=== PATIENT | female | born 1970 | race Caucasian/White ===

== ENCOUNTER 2020-06-23 09:49 | Outpatient (REF) | payer OTHER, MEDICAID, SELFPAY ==
[2020-06-23 11:36] LABS: Free T4 (Free Thyroxine) 0.99 ng/dL (0.71-1.85); Thyroid Stimulating Hormone 5.97 uIU/mL (0.32-4.0)
== END 2020-06-23 09:50 | disposition home or self-care (01) ==
LOC: HO.LAB 09:49
PROVIDERS: PCP Internal Medicine; Visit Provider Internal Medicine
DX: E03.9 Hypothyroidism, unspecified (principal)
CPT/HCPCS: 84439; 84443

== ENCOUNTER 2020-08-17 09:05 | Outpatient (REF) | payer OTHER, MEDICAID, SELFPAY ==
[2020-08-17 11:27] LABS: MANUAL DIFF FLAG NO
[2020-08-17 11:48] LABS: Basophils Percent Auto 0.5 % (0-2); Eosinophils Absolute Auto 0.1 X10*3/uL (0.0-0.4); Eosinophils Percent Auto 1.8 % (0-4); Hematocrit 37.7 % (37-47); Hemoglobin 11.7 g/dl (12.0-16.0); Imm Gran Abs Auto 0.01 X10*3/uL (0.00-0.03); Imm Gran Pct Auto 0.3 % (0.0-0.4); Lymphocytes Absolute Auto 1.1 X10*3/uL (1.2-4.9); Lymphocytes Percent Auto 28.6 % (20-40); Mean Corpuscular Hemoglobin 26.6 pg (27.0-33.0); Mean Corpuscular Volume 85.7 fL (80-98); Mean Platelet Volume 12.9 fL (9.4-12.3); Monocytes Absolute Auto 0.4 X10*3/uL (0.1-1.2); Monocytes Percent Auto 10.2 % (2-11); Neutrophils Absolute Auto 2.3 X10*3/uL (2.0-8.3); Neutrophils Percent Auto 58.6 % (45-73); Platelet Count 186 X10*3/uL (160-400); Red Cell Distribution Width 13.3 % (11.0-16.0); White Blood Count 3.9 X10*3/uL (4.8-10.8)
[2020-08-17 11:56] LABS: Cholesterol 207 mg/dL; Glucose Fasting 94 mg/dL (60-99); HDL Cholesterol 80 mg/dL; LDL Cholesterol Calculated 114 mg/dl; Triglycerides 68 mg/dL
[2020-08-17 12:22] LABS: Free T4 (Free Thyroxine) 1.14 ng/dL (0.71-1.85)
[2020-08-20 18:23] LABS: Thyroid Peroxidase Antibodies <1 IU/mL (<9)
== END 2020-08-17 09:06 | disposition home or self-care (01) ==
LOC: HO.HMGCLDS 09:05
PROVIDERS: PCP Internal Medicine; Visit Provider Internal Medicine
DX: E03.9 Hypothyroidism, unspecified (principal); D64.9 Anemia, unspecified
CPT/HCPCS: 36415; 80061; 82947; 84439; 84443; 85025; 86376

== ENCOUNTER 2020-11-17 09:28 | Outpatient (REF) | payer OTHER, MEDICAID, SELFPAY ==
[2020-11-17 10:49] LABS: Basophils Percent Auto 1.1 % (0-2); Eosinophils Absolute Auto 0.1 X10*3/uL (0.0-0.4); Eosinophils Percent Auto 2.6 % (0-4); Hematocrit 37.5 % (37-47); Hemoglobin 11.5 g/dl (12.0-16.0); Imm Gran Abs Auto 0.01 X10*3/uL (0.00-0.03); Imm Gran Pct Auto 0.4 % (0.0-0.4); Lymphocytes Percent Auto 36.8 % (20-40); MANUAL DIFF FLAG SCAN; Mean Corpuscular HGB Conc 30.7 g/dl (31.0-35.0); Mean Corpuscular Hemoglobin 26.4 pg (27.0-33.0); Monocytes Absolute Auto 0.4 X10*3/uL (0.1-1.2); Monocytes Percent Auto 14.9 % (2-11); Neutrophils Absolute Auto 1.2 X10*3/uL (2.0-8.3); Neutrophils Percent Auto 44.2 % (45-73); PLT CLUMP 1; Red Blood Count 4.36 X10*6/uL (4.20-5.50); Red Cell Distribution Width 13.7 % (11.0-16.0); SCAN SMEAR FLAG 1
[2020-11-17 11:14] LABS: White Blood Count 2.7 X10*3/uL (4.8-10.8)
[2020-11-17 11:15] LABS: Platelet Count 134 X10*3/uL (160-400); SLIDE REVIEW VERIFIED
[2020-11-17 11:49] LABS: Alanine Aminotransferase 15 U/L (0-31); Albumin Level 3.9 g/dL (3.5-5.0); Alkaline Phosphatase 72 U/L (39-117); Anion Gap 12 (12-20); Aspartate Amino Transferase 15 U/L (5-31); Bilirubin Total 0.4 mg/dL (0.0-1.0); Blood Urea Nitrogen 11 mg/dL (9-16); Calcium 9.4 mg/dL (8.4-10.2); Carbon Dioxide 29 mmol/L (22-29); Chloride 107 mmol/L (96-108); Cholesterol 191 mg/dL; Estimated Glomerular Filt Rate > 60; Glucose Fasting 100 mg/dL (60-99); HDL Cholesterol 73 mg/dL; LDL Cholesterol Calculated 105 mg/dl; Potassium 4.6 mmol/L (3.3-5.1); Sodium 143 mmol/L (135-145); Total Protein 6.3 g/dL (6.5-8.0); Triglycerides 69 mg/dL
[2020-11-17 12:13] LABS: Thyroid Stimulating Hormone 4.56 uIU/mL (0.32-4.0); Vitamin D 25-OH Total 38.4 ng/mL (>30)
== END 2020-11-17 09:29 | disposition home or self-care (01) ==
LOC: HO.LAB 09:28
PROVIDERS: Visit Provider Internal Medicine
DX: C50.919 Malignant neoplasm of unspecified site of unspecified female breast (principal); D64.9 Anemia, unspecified; E03.9 Hypothyroidism, unspecified; Z78.0 Asymptomatic menopausal state
CPT/HCPCS: 36415; 80053; 80061; 82306; 84439; 84443; 85025

== ENCOUNTER 2020-12-05 12:02 | Outpatient (REF) | payer OTHER, MEDICAID, SELFPAY ==
--- NOTE | ~2020-12-05 | XR_ITS ---
EXAMINATION: XR KNEE, RIGHT CLINICAL INFORMATION: M25.561 - Pain in right knee COMPARISON: None TECHNIQUE: Four views of the right knee. FINDINGS: There is no fracture, dislocation, or definite suprapatellar effusion. Hoffa's fat pad appears normal. There is no joint narrowing or erosive change or chondrocalcinosis. Normal bony mineralization. No periostitis or destructive process. There is mild spurring at quadriceps insertion patella. XR/XR knee RT 4V IMPRESSION: 1. Spurring at quadriceps insertion patella. 2. No joint narrowing or erosive changes or definite effusion.
== END 2020-12-05 12:03 | disposition home or self-care (01) ==
LOC: HO.HMGCX 12:02
PROVIDERS: Visit Provider Internal Medicine
DX: M25.561 Pain in right knee (principal)
CPT/HCPCS: 73564

== ENCOUNTER 2022-05-23 09:18 | Outpatient (REF) | payer OTHER, MEDICAID, SELFPAY ==
[2022-05-23 11:33] LABS: Basophils Percent Auto 0.8 % (0-2); Eosinophils Absolute Auto 0.1 X10*3/uL (0.0-0.4); Eosinophils Percent Auto 2.4 % (0-4); Hematocrit 37.2 % (37.0-47.0); Hemoglobin 11.7 g/dl (12.0-16.0); Imm Gran Abs Auto 0.01 X10*3/uL (0.00-0.03); Imm Gran Pct Auto 0.3 % (0.0-0.4); Lymphocytes Absolute Auto 1.1 X10*3/uL (1.2-4.9); Lymphocytes Percent Auto 28.5 % (20-40); MANUAL DIFF FLAG SCAN; Mean Corpuscular HGB Conc 31.5 g/dl (31.0-35.0); Mean Corpuscular Hemoglobin 26.4 pg (27.0-33.0); Monocytes Absolute Auto 0.4 X10*3/uL (0.1-1.2); Monocytes Percent Auto 9.4 % (2-11); Neutrophils Absolute Auto 2.2 x10*3/uL (2.0-8.3); Neutrophils Percent Auto 58.6 % (45-73); PLT CLUMP 1; Red Blood Count 4.43 X10*6/uL (4.20-5.50); Red Cell Distribution Width 13.6 % (11.0-16.0); SCAN SMEAR FLAG 1
[2022-05-23 11:54] LABS: Platelet Count 163 X10*3/uL (160-400); White Blood Count 3.7 X10*3/uL (4.8-10.8)
[2022-05-23 12:07] LABS: Alanine Aminotransferase 14 U/L (0-31); Anion Gap 15 (12-20); Aspartate Amino Transferase 18 U/L (5-31); Blood Urea Nitrogen 13 mg/dL (9-16); Calcium 9.4 mg/dL (8.4-10.2); Carbon Dioxide 26 mmol/L (22-29); Chloride 105 mmol/L (96-108); Cholesterol 219 mg/dL; Estimated Glomerular Filt Rate > 60; Glucose Fasting 95 mg/dL (60-99); HDL Cholesterol 75 mg/dL; LDL Cholesterol Calculated 124 mg/dl; Potassium 4.5 mmol/L (3.3-5.1); Sodium 141 mmol/L (135-145); Triglycerides 102 mg/dL
[2022-05-23 12:11] LABS: Free T4 (Free Thyroxine) 1.05 ng/dL (0.71-1.85); Thyroid Stimulating Hormone 5.32 uIU/mL (0.32-4.0); Vitamin D 25-OH Total 28.8 ng/mL (>30)
[2022-05-23 12:20] LABS: Folate 13.7 ng/mL (> or = 4.0); Vitamin B12 436 pg/mL (200-900)
[2022-05-23 13:32] LABS: SLIDE REVIEW VERIFIED
== END 2022-05-23 09:19 | disposition home or self-care (01) ==
LOC: HO.HMGCLDS 09:18
PROVIDERS: PCP Internal Medicine; Visit Provider Internal Medicine
DX: Z00.01 Encounter for general adult medical examination with abnormal findings (principal); D63.0 Anemia in neoplastic disease; E03.9 Hypothyroidism, unspecified
CPT/HCPCS: 36415; 80048; 80061; 82306; 82607; 82746; 84439; 84443; 84450; 84460; 85025

== ENCOUNTER 2022-06-05 10:27 | Outpatient (REF) | payer OTHER, MEDICAID, SELFPAY ==
--- NOTE | ~2022-06-05 | MM_ITS ---
EXAMINATION: BONE DENSITOMETRY CLINICAL INDICATION: Malignant neoplasm of unspecified site of left female.. COMPARISON: None (current study represents initial baseline exam). TECHNIQUE: Using a Zeomatrix DXA System (software version: 13.1) manufactured by [employer], dual-energy x-ray absorptiometry was performed of the lumbar spine and left hip. The images are of good technical quality. Summary results are attached. FINDINGS: AP SPINE L1-L4: BMD 0.897 g/cm2, Z-score -2.0, T-score -2.4, osteopenia. LEFT FEMUR, NECK: BMD 0.827 g/cm2, Z-score -0.7, T-score -1.5, osteopenia. LEFT FEMUR, TOTAL: BMD 0.883 g/cm2, Z-score -0.5, T-score -1.0, normal. IDENTIFIED RISK FACTORS: Height loss. Early menopause, secondary osteoporosis. HISTORY OF FRACTURE: None listed. MEDICATIONS: Calcium supplements or multivitamin, vitamin D, ERT/SERMS. MM/XR DEXA axial skeleton IMPRESSION: 1. DIAGNOSIS: Osteopenia based on the lowest T-score value of -2.4 in the lumbar spine applying World Health Organization criteria. 2. 10-YEAR FRACTURE RISK PREDICTION, FRAX: Major osteoporotic fracture (clinical spine, forearm, hip or shoulder) 2.6%. Hip fracture 0.2%. 3. Treatment Recommendations: NOF guidelines recommend consideration for treatment in postmenopausal women and men age 50 and older presenting with the following: -A hip or vertebral (clinical or morphometric) fracture. -T-score less than or equal to -2.5 at the femoral neck or spine after appropriate evaluation to exclude secondary causes. -Low bone mass at the hip or spine and a 10-year fracture probability by FRAX of greater than or equal to 3% for hip fracture or greater than or equal to 20% for major osteoporotic fracture based on the [place] adapted WHO algorithm. 4. Other Recommendations: All treatment decisions require clinical judgment and consideration of individual patient factors, including patient preferences, comorbidities, previous drug use, risk factors not captured in the FRAX model (e.g. frailty, falls, vitamin D deficiency, increased bone turnover, interval significant decline in bone density) and possible under or overestimation of fracture risk by FRAX. Additional medical evaluation for secondary cause of low bone mineral density may be appropriate. FUTURE SCAN RECOMMENDATION: People with diagnosed cases of osteoporosis or at high risk for fracture should have regular bone mineral density tests. For patients eligible for Medicare, routine testing is allowed once every 2 years. The testing frequency can be increased to one year for patients who have rapidly progressing disease, those who are receiving or discontinuing medical therapy to restore bone mass, or have additional risk factors.
== END 2022-06-05 10:28 | disposition home or self-care (01) ==
LOC: HO.MAMMO 10:27
PROVIDERS: PCP Internal Medicine; Visit Provider Internal Medicine
DX: Z13.820 Encounter for screening for osteoporosis (principal); C50.912 Malignant neoplasm of unspecified site of left female breast; E03.9 Hypothyroidism, unspecified; Z86.000 Personal history of in-situ neoplasm of breast; Z82.62 Family history of osteoporosis; Z78.0 Asymptomatic menopausal state
CPT/HCPCS: 77080

== ENCOUNTER 2022-12-11 09:32 | Outpatient (REF) | payer OTHER, MEDICAID, SELFPAY ==
[2022-12-11 11:21] LABS: MANUAL DIFF FLAG NO
[2022-12-11 11:33] LABS: Basophils Percent Auto 0.9 % (0-2); Eosinophils Absolute Auto 0.1 X10*3/uL (0.0-0.4); Eosinophils Percent Auto 1.7 % (0-4); Hemoglobin 11.9 g/dl (12.0-16.0); Imm Gran Abs Auto 0.01 X10*3/uL (0.00-0.03); Imm Gran Pct Auto 0.3 % (0.0-0.4); Lymphocytes Absolute Auto 1.1 X10*3/uL (1.2-4.9); Lymphocytes Percent Auto 30.5 % (20-40); Mean Corpuscular HGB Conc 31.3 g/dl (31.0-35.0); Mean Corpuscular Hemoglobin 26.7 pg (27.0-33.0); Mean Corpuscular Volume 85.4 fL (80.0-98.0); Mean Platelet Volume 12.8 fL (9.4-12.3); Monocytes Absolute Auto 0.4 X10*3/uL (0.1-1.2); Monocytes Percent Auto 10.1 % (2-11); Neutrophils Percent Auto 56.5 % (45-73); Platelet Count 170 X10*3/uL (160-400); Red Blood Count 4.45 X10*6/uL (4.20-5.50); Red Cell Distribution Width 13.5 % (11.0-16.0); White Blood Count 3.5 X10*3/uL (4.8-10.8)
[2022-12-11 12:01] LABS: Alanine Aminotransferase 16 U/L (0-31); Aspartate Amino Transferase 18 U/L (5-31); Cholesterol 190 mg/dL; HDL Cholesterol 71 mg/dL; Iron 114 mcg/dL (30-160); LDL Cholesterol Calculated 105 mg/dl; Percent Iron Saturation 31 % (15-50); Total Iron Binding Capacity 365 mcg/dL (228-428); Triglycerides 73 mg/dL; Unsaturated Iron Binding 251 ug/dL
[2022-12-11 12:21] LABS: Thyroid Stimulating Hormone 5.36 uIU/mL (0.32-4.0); Vitamin D 25-OH Total 104.2 ng/mL (>30)
== END 2022-12-11 09:33 | disposition home or self-care (01) ==
LOC: HO.HMGCLDS 09:32
PROVIDERS: PCP Internal Medicine; Visit Provider Internal Medicine
DX: E03.9 Hypothyroidism, unspecified (principal); E55.9 Vitamin D deficiency, unspecified; D64.9 Anemia, unspecified
CPT/HCPCS: 36415; 80061; 82306; 83540; 84443; 84450; 84460; 85025

== ENCOUNTER 2022-12-15 11:35 | Outpatient (AMB) | payer OTHER, MEDICAID, SELFPAY ==
--- NOTE | 2022-12-15 12:14 | A.OFFPC_ITS ---
Vital Signs 12/15/22 12:16 Height 5 ft 4 in Weight 144 lb BMI 24.7 BP 126/80 Blood Pressure Location Lt brachial Position Sitting Pulse 78 Pulse Source Pulse Oximeter Pulse Oximetry (%) 100 Oxygen Delivery Method Room Air Intake Visit Reasons: 6 Month Follow up Intake Note: Pt is here today for her 6 months f/u Allergies No Known Allergies Allergy (Verified 04/01/23 01:59) Medication List - Last Reconciled 04/01/23 by Renu Arzate MD diclofenac sodium 1% (Arthritis Pain (diclofenac)) 4 grams topical .bid PRN fluocinonide 0.05% 1 appl topical BID 10 days levothyroxine 37.5 mcg (1.5 x 25 mcg) PO DAILY nxxjkgtkmthy-bjri-zwrnz acid 18-400 mg-mcg (Centrum Complete) 1 tab PO DAILY tamoxifen 20 mg PO DAILY Tobacco use date assessed: 12/15/22 HPI 6 Month Follow up HPI Details 53-year-old lady with acquired hypothyroidism, history of infiltrating ductal carcinoma breast status post mastectomy currently on tamoxifen, here today for her follow-up. She has been feeling well, with recent fasting labs showing mild anemia with normal iron levels, normal fasting lipids, vitamin-D level, electrolytes and fasting glucose, but TSH mildly elevated [facility] Medical History (Updated 12/15/22 @ 12:45 by Renu Arzate MD) Acquired hypothyroidism Anemia Bilateral posterior neck pain Family history of osteoporosis in mother History of COVID-19 History of ductal carcinoma in situ (DCIS) of breast History of migraine History of Papanicolaou smear of cervix Infiltrating ductal carcinoma of breast Irritable bowel syndrome with constipation Knee pain, right Rash of toe Tubular adenoma of colon Varicose vein of leg Vitamin D deficiency Surgical History History of breast reconstruction History of section History of colonoscopy History of mastectomy Family History Father HTN (hypertension) Mother HTN (hypertension) Colon cancer, Onset Age: 58 Maternal Uncle Colon cancer, Onset Age: 58 Brother No problems noted. Brother No problems noted. Brother No problems noted. Sister No problems noted. Sister No problems noted. Son No problems noted. Son No problems noted. Social History Housing: House Alcohol intake: never Patient Tobacco Use Status: Never used Tobacco e-Cigarette/Vaping Use: Never Used service: No Current occupational status: unemployed Cognitive needs: No Hearing needs: No Vision needs: Yes Questionnaire PHQ-9 Over the last 2 weeks, how often have you been bothered by any of the following problems? 1. Little interest or pleasure in doing things: not at all 2. Feeling down, depressed, or hopeless: not at all 3. Trouble falling or staying asleep, or sleeping too much: several days 4. Feeling tired or having little energy: several days 5. Poor appetite or overeating: not at all 6. Feeling bad about yourself - or that you are a failure or have let yourself or your family down: not at all 7. Trouble concentrating on things, such as reading the newspaper or watching television: not at all 8. Moving or speaking so slowly that other people could have noticed. Or the opposite - being so fidgety or restless that you have been moving around a lot more than usual: not at all 9. Thoughts that you would be better off or of hurting yourself in some way: not at all Total score: 2 Depression Screening Interpretation: Negative [id number] - PHQ-9 Billing: Yes Source: Developed by Drs. Denys Cheema, Radha Ugarte, Ant Kat and colleagues, with an educational ty from [employer]. Thrive Questionnaire Date Thrive assessed: 12/15/22 I am a: Patient What is your living situation today?: I have a steady place to live Within the past 12 months, did the food you bought not last and you didn't have the money to get more?: Never true Within the past 12 months, did you worry whether your food would run out before you got money to buy more?: Never true Do you have trouble paying for medicines?: No Do you have trouble getting transportation to medical appointments?: No Do you have trouble paying your heating and electricity bill?: No Do you have trouble taking care of your child, family member or friend?: No Do you have trouble with day-to-day activities such as bathing, preparing meals, shopping, managing finances, etc.?: No Are you currently unemployed and looking for a job?: No Are you interested in more education?: No AUDIT C Alcohol Use Questionnaire (AUDIT-C) 1. How often do you have a drink containing alcohol?: Never Total Score: 0 GWYN-7 AMB Questionnaire GWYN-7 Date GWYN - 7 assessed: 12/15/22 Feeling nervous, anxious, or on edge: 0 = Not at all Not being able to stop or control worryin = Not at all Worrying too much about different things: 0 = Not at all Trouble relaxin = Not at all Being so restless that it is hard to sit still: 0 = Not at all Becoming easily annoyed or irritable: 0 = Not at all Feeling afraid as if something awful might happen: 0 = Not at all Total GWYN-7 score (0-4 normal; 5-9 mild; 10-14 moderate; 15-21 severe): 0 Source: Developed by Drs. Denys Cheema, Radha Ugarte, Ant Kat and colleagues, with an educational ty from [employer]. GWYN-7 Assessment Billing GWYN-7 Assessment Tool: GWYN-7 Assessment [id number] Review of Systems Const Denies difficulty sleeping, Denies fatigue, Denies lethargy, Denies malaise, Denies poor appetite and Denies weakness Eyes Details: Wears reading glasses Reports no additional complaints ENT Reports no additional complaints Card Denies chest pain, Denies irregular heart rhythm, Denies lightheadedness, Denies palpitations and Denies dyspnea Resp Denies cough and Denies dyspnea GI Denies melena, Denies bloating and Denies hematochezia Denies difficulty voiding, Denies hot flashes, Denies dysuria and Denies urinary incontinence Musc Reports as per HPI and Reports arthralgias Skin/Breast Details: History of mastectomy with bilateral breast reconstruction, Neuro Denies weakness Psych Reports as per HPI Endo Denies fatigue and Denies palpitations Tanvir/Lymph Denies easy bleeding and Denies easy bruising Aller/Immun Reports no additional complaints Physical exam (Primary Care) Vital Signs: Last Vital Signs Pulse 78 12/15/22 12:16 BP 126/80 12/15/22 12:16 Pulse Ox 100 12/15/22 12:16 Oxygen Delivery Method Room Air 05/22/23 12:16 BMI result Body Mass Index 24.7 Tobacco/Smoking Status: Tobacco use Status Tobacco use date assessed 12/15/22 12/15/22 12:23 Patient Tobacco Use Status Never used Tobacco 12/15/22 12:23 e-Cigarette/Vaping Use Never Used 12/15/22 12:23 PHQ-9: PHQ-9 Score PHQ-9: Total score 2 04/01/23 01:59 Depression Screening Interpretation: Negative Thrive Assessment: Date of Thrive Assessment Date Thrive assessed 12/15/22 12/15/22 12:23 Const General: cooperative, healthy appearing, comfortable, no acute distress and alert Nutritional Appearance: average body habitus Orientation/consciousness: patient oriented x3 Limitations: no limitations HENMT Head: Yes normocephalic and Yes atraumatic Ears: hearing grossly normal bilaterally, external ears normal, TM's normal bilaterally and EAC's normal General nose exam: Normal external nose present and No nasal discharge present Face and sinus: Yes face symmetric Mouth: Normal oral and palatal mucosa present, lip normal, tongue normal, oropharynx normal and moist mucous membranes Eyes General: appearance normal, both eyes and all related structures Neck Neck: Yes normal visual inspection, Yes full ROM, Yes no lymphadenopathy and Yes supple Chest Other: Status post breast reconstruction Resp Effort & Inspection: normal respiratory effort and able to speak in complete sentences Auscultation: clear to auscultation bilaterally Cardio Palpation: normal PMI Rate: regular rate Rhythm: regular rhythm Heart sounds: S1 normal heart sound present and S2 normal heart sound present GI Inspection: Yes normal to inspection Palpation (GI): Soft to palpation, nontender, no guarding and no masses Auscultation: normal bowel sounds Other: Goes to OBGYN in [facility] General: Yes deferred Skin General skin exam: no rashes or lesions noted Neuro General: patient oriented x3 Extrem General: Yes full ROM, Yes normal exam except as noted, Yes no joint enlargement, Yes no clubbing, cyanosis or edema, Yes no calf tenderness and Yes normal gait Psych Appearance: grossly normal and well kempt Mental Status: mental status grossly normal Speech and movement: Normal speech and movement present Affect: normal affect Attitude: cooperative Results Reviewed Results Reviewed: ENTERED: 12/11/22-3180 GALILEO KIM: ORDERED: CBC Auto Diff Test Result Flag Reference Site WBC 3.5 L 4.8-10.8 X10*3/uL RBC 4.45 4.20-5.50 X10*6/uL HGB 11.9 L 12.0-16.0 g/dl HCT 38.0 37.0-47.0 % MCV 85.4 80.0-98.0 fL MCH 26.7 L 27.0-33.0 pg MCHC 31.3 31.0-35.0 g/dl RDW 13.5 11.0-16.0 % PLT 170 160-400 X10*3/uL MPV 12.8 H 9.4-12.3 fL Neut Pct Auto 56.5 45-73 % ImGran Pct Auto 0.3 0.0-0.4 % Lymp Pct Auto 30.5 20-40 % [place] Pct Auto 10.1 2-11 % Eos Pct Auto 1.7 0-4 % Baso Pct Auto 0.9 0-2 % NRBC Pct Auto 0.0 0.0-0.2 /100WBC ANC Neut Abs # 2.0 2.0-8.3 x10*3/uL ImGran Abs Auto 0.01 0.00-0.03 X10*3/uL Lymph Abs Auto 1.1 L 1.2-4.9 X10*3/uL [place] Abs Auto 0.4 0.1-1.2 X10*3/uL Eos Abs Auto 0.1 0.0-0.4 X10*3/uL Baso Abs Auto 0.0 0.0-0.2 X10*3/uL NRBC Abs Auto 0.000 0.0-0.012 X10*3/uL RUN: 12/15/22 1230 PAGE 1 [facility] [address] [place] [id number] Security Sales Manager: Robert Faye M.D. Specimen Inquiry N Name: Gage,Leann Age/Sex: 52/F : 1970 Unit#: [id number] Attend Dr: Renu Arzate MD Re12/11/22 Status: DEP REF Location: [facility] Disch: SPEC : [id number] VERNON: 12/11/22 STATUS: COMP REQ : [id number] RECD: 12/11/22-[address]: Renu Arzate MD COMP: 12/11/22-1220 ENTERED: 12/11/[address]: ORDERED: IRON PROF, AST, ALT, Lipid Panel, Vitamin D 25-OH, TSH Test Result Flag Reference Site Iron 114 30-160 mcg/dL TIBC 365 228-428 mcg/dL Saturation 31 15-50 % UIBC 251 ug/dL AST (GOT) 18 5-31 U/L ALT (GPT) 16 0-31 U/L Triglyceride 73 mg/dL Desirable Triglyceride: less than 150 mg/dL Borderline High Triglyceride 150-199 mg/dL High Triglyceride: 200-499 mg/dL Very High Triglyceride: greater than or equal to 5OO mg/dL Chol 190 mg/dL Desirable Cholesterol: less than 200 mg/dL Borderline High Cholesterol: 200-239 mg/dL High Cholesterol: greater than 239 mg/dL LDL Calculated 105 mg/dl Desirable LDL: less than 100 mg/dL Near Optimal/Above Optimal LDL: 110-129 mg/dL Borderline High LDL: 130-159 mg/dL High LDL: 160-189 mg/dL Very High LDL: greater than or equal to 190 mg/dL HDL 71 mg/dL Desirable HDL: greater than 40 mg/dL Note: This HDL assay may give artificially low results in patients with liver disease. Vit D 25-OH Tot 104.2 >30 ng/mL Health Based Reference Values* < 20 ng/mL Deficient 20-30 ng/mL Insufficient > 30 ng/mL Sufficient *Billy MOLINA. N Engl J Med. 2007;357:266-280 Care must be taken in interpreting Vitamin D results from different laboratories and methodologies. Published data demonstrated that results from patients undergoing hemodialysis may show a negative bias when tested with various automated 25-OH vitamin D assays when compared to LC-MS/MS. When testing samples from patients whose predominant form of Vitamin D is Vitamin D2, such as patients receiving Vitamin D2 supplementation, results that are subtherapeutic should be confirmed with another method such as LC-MS/MS. TSH 3rd Gen. 5.36 H 0.32-4.0 uIU/mL Note: A sustained TSH level above 2.5 uIU/mL may warrant further investigation. TSH 3rd Generation ([facility]) Assessment and Plan Assessment & Plan (1) Acquired hypothyroidism: Code(s): E03.9 - Hypothyroidism, unspecified Plan: Continue with current dose of levothyroxine, recheck again free T4 and TSH in 3 months (2) History of ductal carcinoma in situ (DCIS) of breast: Code(s): Z86.000 - Personal history of in-situ neoplasm of breast Plan: Followed by Oncology, currently on tamoxifen (3) Anemia: Code(s): D64.9 - Anemia, unspecified Qualifiers: Anemia type: other cause Other causes of anemia: chronic disease, neoplastic Qualified Code(s): D63.0 - Anemia in neoplastic disease Plan: Continue eating an iron rich diet, Orders: Orders Free T4 (Free Thyroxine) 02/24/23 E03.9 - Hypothyroidism, unspecified, E67.3 - Hypervitaminosis D Thyroid Stimulating Hormone 02/24/23 E03.9 - Hypothyroidism, unspecified, E67.3 - Hypervitaminosis D Vitamin D 25-OH Total 02/24/23 E03.9 - Hypothyroidism, unspecified, E67.3 - Hypervitaminosis D Coding Level of Care Code Est Pt Level 4 (71341) Diagnoses Acquired hypothyroidism E03.9 History of ductal carcinoma in situ (DCIS) of breast Z86.000 Anemia D63.0 Anemia type: other cause Other causes of anemia: chronic disease, neoplastic Additional Codes GWYN-7 Assessment Billing - GWYN-7 Assessment Tool: GWYN-7 Assessment [id number] ([id number])
[2022-12-15 12:16] VITALS: BP 126/80; PULSE 78; O2SAT 100; BMI 24.7
== END 2022-12-15 13:01 | disposition home or self-care (01) ==
LOC: HO.HMGC 11:35
PROVIDERS: PCP Internal Medicine; Visit Provider Internal Medicine
DX: E03.9 Hypothyroidism, unspecified (principal); Z86.000 Personal history of in-situ neoplasm of breast; D63.0 Anemia in neoplastic disease
CPT/HCPCS: 99214

== ENCOUNTER 2023-04-30 09:31 | Outpatient (REF) | payer OTHER, MEDICAID, SELFPAY ==
[2023-04-30 12:04] LABS: Anion Gap 14 (12-20); Blood Urea Nitrogen 9 mg/dL (9-16); Calcium 9.1 mg/dL (8.4-10.2); Carbon Dioxide 27 mmol/L (22-29); Chloride 105 mmol/L (96-108); Estimated Glomerular Filt Rate > 60; Glucose Fasting 96 mg/dL (60-99); Potassium 3.9 mmol/L (3.3-5.1); Sodium 142 mmol/L (135-145)
[2023-04-30 12:06] LABS: Free T4 (Free Thyroxine) 0.97 ng/dL (0.71-1.85); Thyroid Stimulating Hormone 3.73 uIU/mL (0.32-4.0)
== END 2023-04-30 09:32 | disposition home or self-care (01) ==
LOC: HO.HMGCLDS 09:31
PROVIDERS: PCP Internal Medicine; Visit Provider Internal Medicine
DX: E03.9 Hypothyroidism, unspecified (principal); D63.0 Anemia in neoplastic disease; E67.3 Hypervitaminosis D; E55.9 Vitamin D deficiency, unspecified
CPT/HCPCS: 36415; 80048; 82306; 84439; 84443

== ENCOUNTER 2023-06-25 09:53 | Outpatient (AMB) | payer OTHER, MEDICAID, SELFPAY ==
[2023-06-25 12:46] VITALS: BP 120/72; PULSE 83; TEMP 36.3; O2SAT 98; BMI 25.6
--- NOTE | 2023-06-25 12:46 | AM.OFFWIN_ITS ---
Intake Vital Signs 06/25/23 12:46 Height 5 ft 4 in Weight 149 lb BMI 25.6 BP 120/72 Blood Pressure Location Rt brachial Position Sitting Pulse 83 Pulse Source Pulse Oximeter Temp 97.4 F Temp Source Temporal Artery Scan Pulse Oximetry (%) 98 Oxygen Delivery Method Room Air Intake Visit Reasons: EP cough wont go away [id number] Intake Note: pt is here today for cough wont go away started 1 month ago Patient Tobacco Use Status: Never used Tobacco Allergies No Known Allergies Allergy (Verified 06/25/23 12:47) Do you need a note to return to daycare/school/sports/work: Yes HPI HPI Comments History of Present Illness Details The patient presents to urgent care for evaluation of cough. She reports that she had a cold about 4 weeks ago. Since the cold resolved she was left with a cough. Which has been persistent especially at night. Otherwise she is well normal appetite no fever normal level of activity COUNTS INCLUDE 234 BEDS AT THE [facility] Medical History (Updated 12/15/22 @ 12:45 by Renu Arzate MD) Vitamin D deficiency Family history of osteoporosis in mother History of ductal carcinoma in situ (DCIS) of breast History of Papanicolaou smear of cervix Rash of toe Bilateral posterior neck pain Tubular adenoma of colon History of COVID-19 Knee pain, right Irritable bowel syndrome with constipation Anemia History of migraine Varicose vein of leg Infiltrating ductal carcinoma of breast Acquired hypothyroidism Surgical History History of breast reconstruction History of section History of colonoscopy History of mastectomy Family History Father HTN (hypertension) Mother HTN (hypertension) Colon cancer, Onset Age: 58 Maternal Uncle Colon cancer, Onset Age: 58 Brother No problems noted. Brother No problems noted. Brother No problems noted. Sister No problems noted. Sister No problems noted. Son No problems noted. Son No problems noted. Social History Housing: House Alcohol intake: never Patient Tobacco Use Status: Never used Tobacco e-Cigarette/Vaping Use: Never Used service: No Current occupational status: unemployed Cognitive needs: No Hearing needs: No Vision needs: Yes Review of Systems Const Denies increased appetite Card Denies radiating jaw, neck or arm pain and Denies dyspnea Resp Denies hemoptysis and Denies dyspnea Physical Exam Vital Signs: Last Vital Signs Temp 97.4 F 06/25/23 12:46 Pulse 83 06/25/23 12:46 BP 120/72 06/25/23 12:46 Pulse Ox 98 06/25/23 12:46 Oxygen Delivery Method Room Air 06/25/23 12:46 BMI result Body Mass Index 25.6 Const General: healthy appearing and no acute distress Chest Chest palpation & inspection: normal inspection of the chest Resp Effort & Inspection: normal respiratory effort and able to speak in complete sentences Assessment & Plan Assessment & Plan (1) Post-viral cough syndrome: Code(s): R05.8 - Other specified cough Plan The patient's history and physical are consistent with a post viral cough syndrome. She has a persistent cough despite the resolution of the other viral symptoms after a cold. I do not feel that the patient needs antibiotics at this time. We will address the persistent cough with cough suppressants , Tessalon Perles and codeine liquid. Medications: New benzonatate 100 mg PO TID PRN 14 caps 0RF cough codeine-guaifenesin 10-100 mg/5 mL 5 mL PO Q6H PRN 120 mL 0RF allergy symptoms Coding Level of Care Code Est Pt Level 3 (59451) Diagnoses Post-viral cough syndrome R05.8
== END 2023-06-25 13:31 | disposition home or self-care (01) ==
PROVIDERS: PCP Internal Medicine; Visit Provider Emergency Medicine
DX: R05.8 Other specified cough (principal)
CPT/HCPCS: 99213

== ENCOUNTER 2023-07-02 10:54 | Outpatient (AMB) | payer OTHER, MEDICAID, SELFPAY ==
[2023-07-02 11:35] VITALS: BP 114/72; PULSE 71; O2SAT 98; BMI 25.4
--- NOTE | 2023-07-02 11:35 | MHC.PC.OV ---
Vital Signs 07/02/23 11:35 Height 5 ft 4 in Weight 148 lb 2 oz BMI 25.4 BP 114/72 Blood Pressure Location Rt brachial Position Sitting Pulse 71 Pulse Source Pulse Oximeter Pulse Oximetry (%) 98 Oxygen Delivery Method Room Air Intake Visit Reasons: ANNUAL PE Intake Note: Pt is here for her Annual PE pt had a pap last year [address] [place] Is last menstrual period known: No Allergies No Known Allergies Allergy (Verified 07/02/23 11:52) Medication List - Last Reconciled 07/02/23 by Renu Arzate MD levothyroxine 37.5 mcg (1.5 x 25 mcg) PO DAILY tsbkyxeyvsah-fayn-bxrkm acid 18-400 mg-mcg (Centrum Complete) 1 tab PO DAILY Tobacco use date assessed: 07/02/23 Dental Screening Dental Screen Date: 07/02/23 Did you have a dental visit in the last 12 months?: Yes Did you have a dental problem in the last 6 months where you did not have access to dental care?: No Was dental information given to patient?: Patient has dentist HPI ANNUAL PE HPI Details 53-year-old lady here today for physical exam. She is up-to-date with her bone density scan done last year, which showed presence of osteopenia in lumbar spine and left femoral neck, normal in left femur. No history of fractures. Tubular adenoma seen on last colonoscopy done in 2021, to be repeated again to 5 year, by Dr. Lin. She is up-to-date with her cervical cancer screening done at [facility] last year. She has hypothyroidism, currently stable controlled on levothyroxine 37.5 mg daily. Had numbers per to infection with cough and cold symptoms approximately 6 weeks ago, cold symptoms has resolved but still having it dry cough every now and then. Denies any accompanying chest pain no shortness of breath, no wheezing or weakness reported [facility] Medical History (Updated 07/02/23 @ 11:57 by Renu Arzate MD) Osteopenia of multiple sites Vitamin D deficiency Family history of osteoporosis in mother History of ductal carcinoma in situ (DCIS) of breast History of Papanicolaou smear of cervix Rash of toe Bilateral posterior neck pain Tubular adenoma of colon History of COVID-19 Knee pain, right Irritable bowel syndrome with constipation Anemia History of migraine Varicose vein of leg Infiltrating ductal carcinoma of breast Acquired hypothyroidism Surgical History History of breast reconstruction History of mastectomy History of colonoscopy History of section Family History Father HTN (hypertension) Mother HTN (hypertension) Colon cancer, Onset Age: 58 Maternal Uncle Colon cancer, Onset Age: 58 Brother No problems noted. Brother No problems noted. Brother No problems noted. Sister No problems noted. Sister No problems noted. Son No problems noted. Son No problems noted. Social History Housing: House Alcohol intake: never Patient Tobacco Use Status: Never used Tobacco e-Cigarette/Vaping Use: Never Used service: No Current occupational status: unemployed Cognitive needs: No Hearing needs: No Vision needs: Yes Questionnaire Thrive Questionnaire Date Thrive assessed: 12/15/22 GWYN-7 AMB Questionnaire GWYN-7 Date GWYN - 7 assessed: 12/15/22 Source: Developed by Drs. Denys Cheema, Radha Ugarte, Ant Kat and colleagues, with an educational ty from [employer]. Review of Systems Const Denies difficulty sleeping, Denies fatigue, Denies lethargy, Denies malaise, Denies poor appetite and Denies weakness Eyes Details: Wears reading glasses Reports no additional complaints ENT Reports no additional complaints Card Denies chest pain, Denies irregular heart rhythm, Denies lightheadedness, Denies palpitations and Denies dyspnea Resp Reports as per HPI, Denies excessive phlegm production, Denies dyspnea and Denies wheezing GI Denies melena, Denies bloating and Denies hematochezia Denies difficulty voiding, Denies hot flashes, Denies dysuria and Denies urinary incontinence Musc Reports as per HPI and Reports arthralgias Skin/Breast Details: History of mastectomy with bilateral breast reconstruction, Neuro Denies weakness Psych Reports as per HPI Endo Denies fatigue and Denies palpitations Tanvir/Lymph Denies easy bleeding and Denies easy bruising Aller/Immun Reports no additional complaints and Denies wheezing Physical exam (Primary Care) Vital Signs: Last Vital Signs Pulse 71 07/02/23 11:35 BP 114/72 07/02/23 11:35 Pulse Ox 98 07/02/23 11:35 Oxygen Delivery Method Room Air 07/02/23 11:35 BMI result Body Mass Index 25.4 Tobacco/Smoking Status: Tobacco use Status Tobacco use date assessed 07/02/23 07/02/23 11:41 Patient Tobacco Use Status Never used Tobacco 07/02/23 11:37 e-Cigarette/Vaping Use Never Used 07/02/23 11:37 Thrive Assessment: Date of Thrive Assessment Date Thrive assessed 12/15/22 07/02/23 11:37 Const General: cooperative, healthy appearing, comfortable, no acute distress and alert Nutritional Appearance: average body habitus Orientation/consciousness: patient oriented x3 HENMT Head: Yes normocephalic Ears: hearing grossly normal bilaterally, external ears normal, TM's normal bilaterally and EAC's normal General nose exam: Normal external nose present and No nasal discharge present Face and sinus: Yes face symmetric Mouth: Normal oral and palatal mucosa present, oropharynx normal and moist mucous membranes Eyes General: appearance normal, both eyes and all related structures Neck Neck: Yes normal visual inspection, Yes full ROM, Yes no lymphadenopathy and Yes supple Chest Other: Status post breast reconstruction Resp Effort & Inspection: normal respiratory effort and able to speak in complete sentences Auscultation: clear to auscultation bilaterally Cardio Palpation: normal PMI Rate: regular rate Rhythm: regular rhythm Heart sounds: S1 normal heart sound present and S2 normal heart sound present GI Inspection: Yes normal to inspection Palpation (GI): Soft to palpation, nontender, no guarding and no masses Auscultation: normal bowel sounds Other: Goes to OBGYN in [facility] General: Yes deferred Back/Spine/Pelvis Back: No back tenderness Skin General skin exam: no rashes or lesions noted Neuro General: patient oriented x3 Extrem General: Yes full ROM, Yes normal exam except as noted, Yes no joint enlargement, Yes no clubbing, cyanosis or edema, Yes no calf tenderness and Yes normal gait Psych Appearance: grossly normal and well kempt Mental Status: mental status grossly normal Speech and movement: Normal speech and movement present Affect: normal affect Attitude: cooperative Results Reviewed Results Reviewed: NTERED: 12/11/22-9560 OTHR KIM: ORDERED: CBC Auto Diff Test Result Flag Reference Site WBC 3.5 L 4.8-10.8 X10*3/uL RBC 4.45 4.20-5.50 X10*6/uL HGB 11.9 L 12.0-16.0 g/dl HCT 38.0 37.0-47.0 % MCV 85.4 80.0-98.0 fL MCH 26.7 L 27.0-33.0 pg MCHC 31.3 31.0-35.0 g/dl RDW 13.5 11.0-16.0 % PLT 170 160-400 X10*3/uL NTERED: 04/30/[address] [facility] [address]: ORDERED: Met Prof Fast, Vitamin D 25-OH, Free T4, TSH Test Result Flag Reference Site Sodium 142 135-145 mmol/L Potassium 3.9 3.3-5.1 mmol/L CL 105 96-108 mmol/L CO2 27 22-29 mmol/L Gap 14 12-20 BUN 9 9-16 mg/dL Creat 0.58 0.5-1.4 mg/dL EGFR > 60 NOTE: For -English individuals, multiply the result by 1.210. Chronic Kidney Disease: Estimated GFR < 60 mL/min/1.73m2 Severe Kidney Disease: Estimated GFR < 15 mL/min/1.73m2 FBS 96 60-99 mg/dL CA 9.1 8.4-10.2 mg/dL Vit D 25-OH Tot 42.0 >30 ng/mL Health Based Reference Values* < 20 ng/mL Deficient 20-30 ng/mL Insufficient > 30 ng/mL Sufficient *Billy MOLINA. N Engl J Med. 2007;[id number]:266-280 Care must be taken in interpreting Vitamin D results from different laboratories and methodologies. Published data demonstrated that results from patients undergoing hemodialysis may show a negative bias when tested with various automated 25-OH vitamin D assays when compared to LC-MS/MS. When testing samples from patients whose predominant form of Vitamin D is Vitamin D2, such as patients receiving Vitamin D2 supplementation, results that are subtherapeutic should be confirmed with another method such as LC-MS/MS. Free T4 0.97 0.71-1.85 ng/dL TSH 3rd Gen. 3.73 0.32-4.0 uIU/mL Note: A sustained TSH level above 2.5 uIU/mL may warrant further investigation. TSH 3rd Generation ([facility]) Assessment and Plan Assessment & Plan (1) Osteopenia of multiple sites: Comment: In lumbar spine left femoral neck, seen on bone density done 06/05/2022, due for a repeat later this year, ordered by Dr. Ace due to patient being on letrozole Code(s): M85.89 - Other specified disorders of bone density and structure, multiple sites Plan: Continue with multivitamin, taking adequate cause calcium from dietary sources, vitamin-D 3 at least 2000 units daily, and encouraged to do regular weight-bearing exercise. (2) Anemia: Code(s): D64.9 - Anemia, unspecified Qualifiers: Anemia type: other cause Other causes of anemia: chronic disease, neoplastic Qualified Code(s): D63.0 - Anemia in neoplastic disease Plan: Recommended taking multivitamins and iron rich foods, repeat CBC and iron profile in a month (3) Acquired hypothyroidism: Code(s): E03.9 - Hypothyroidism, unspecified Plan: Thyroid levels are within normal limits, continue with levothyroxine 37.5 mcg daily in a.m. (4) Annual visit for general adult medical examination with abnormal findings: Code(s): Z00.01 - Encounter for general adult medical examination with abnormal findings Plan: Will check appropriate labs. Continue regular dental visit every 6 months and regular eye exams, at least every 2 years. Take adequate calcium in diet and vitamin-D 3 at 2000 IU per cap once a day, in addition to weight-bearing exercises to help maintain good muscle tone and weight control. Up-to-date with her cervical cancer screening, and screening colonoscopy. Reminded to get her COVID booster and flu shot, up-to-date with Tdap. And also to get shingles vaccine (5) Persistent cough for 3 weeks or longer: Code(s): R05.3 - Chronic cough Plan: Likely lingering inflammation from a recent viral infection. Prescription sent for codeine with guaifenesin 10-100 mg per 5 mL, to take 1 tsp every 12 hours as needed only for severe coughing fits. Return to clinic if after a month no improvement of symptoms reported Orders: Orders IRON PROFILE 08/03/23 M85.89 - Other specified disorders of bone density and structure, multiple sites, E89.40 - Asymptomatic postprocedural ovarian failure, D64.9 - Anemia, unspecified, E03.9 - Hypothyroidism, unspecified Vitamin D 25-OH Total 08/03/23 M85.89 - Other specified disorders of bone density and structure, multiple sites, E89.40 - Asymptomatic postprocedural ovarian failure, D64.9 - Anemia, unspecified, E03.9 - Hypothyroidism, unspecified Complete Blood Count Auto Diff 08/03/23 M85.89 - Other specified disorders of bone density and structure, multiple sites, E89.40 - Asymptomatic postprocedural ovarian failure, D64.9 - Anemia, unspecified, E03.9 - Hypothyroidism, unspecified Thyroid Stimulating Hormone 08/03/23 M85.89 - Other specified disorders of bone density and structure, multiple sites, E89.40 - Asymptomatic postprocedural ovarian failure, D64.9 - Anemia, unspecified, E03.9 - Hypothyroidism, unspecified Free T4 (Free Thyroxine) 08/03/23 E03.9 - Hypothyroidism, unspecified, M85.89 - Other specified disorders of bone density and structure, multiple sites, E89.40 - Asymptomatic postprocedural ovarian failure, D64.9 - Anemia, unspecified Medications: Refilled codeine-guaifenesin 10-100 mg/5 mL 5 mL PO Q12H PRN 118 mL 0RF cough Coding Level of Care Code Est Pt Prev Care 40-64y(08442) Diagnoses Osteopenia of multiple sites M85.89 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
== END 2023-07-02 15:22 | disposition home or self-care (01) ==
PROVIDERS: PCP Internal Medicine; Visit Provider Internal Medicine
DX: Z00.01 Encounter for general adult medical examination with abnormal findings (principal); M85.89 Other specified disorders of bone density and structure, multiple sites; D63.0 Anemia in neoplastic disease; E03.9 Hypothyroidism, unspecified; R05.3 Chronic cough
CPT/HCPCS: 99396

== ENCOUNTER 2023-09-04 09:31 | Outpatient (REF) | payer OTHER, MEDICAID, SELFPAY ==
[2023-09-04 11:42] LABS: MANUAL DIFF FLAG NO
[2023-09-04 11:51] LABS: Basophils Percent Auto 0.8 % (0-2); Eosinophils Absolute Auto 0.1 X10*3/uL (0.0-0.4); Eosinophils Percent Auto 1.3 % (0-4); Imm Gran Abs Auto 0.01 X10*3/uL (0.00-0.03); Imm Gran Pct Auto 0.3 % (0.0-0.4); Lymphocytes Absolute Auto 0.9 X10*3/uL (1.2-4.9); Lymphocytes Percent Auto 23.3 % (20-40); Mean Corpuscular Hemoglobin 26.5 pg (27.0-33.0); Mean Corpuscular Volume 85.5 fL (80.0-98.0); Mean Platelet Volume 13.1 fL (9.4-12.3); Monocytes Absolute Auto 0.3 X10*3/uL (0.1-1.2); Neutrophils Absolute Auto 2.5 x10*3/uL (2.0-8.3); Neutrophils Percent Auto 65.3 % (45-73); Platelet Count 187 X10*3/uL (160-400); Red Blood Count 4.91 X10*6/uL (4.20-5.50); Red Cell Distribution Width 13.5 % (11.0-16.0); White Blood Count 3.8 X10*3/uL (4.8-10.8)
[2023-09-04 12:37] LABS: Iron 82 mcg/dL (30-160); Percent Iron Saturation 23 % (15-50); Total Iron Binding Capacity 362 mcg/dL (228-428); Unsaturated Iron Binding 280 ug/dL
[2023-09-04 12:52] LABS: Free T4 (Free Thyroxine) 1.05 ng/dL (0.71-1.85); Thyroid Stimulating Hormone 3.91 uIU/mL (0.32-4.0); Vitamin D 25-OH Total 37.9 ng/mL (>30)
== END 2023-09-04 09:32 | disposition home or self-care (01) ==
LOC: HO.HMGCLDS 09:31
PROVIDERS: PCP Internal Medicine; Visit Provider Internal Medicine
DX: M85.89 Other specified disorders of bone density and structure, multiple sites (principal); E89.40 Asymptomatic postprocedural ovarian failure; E03.9 Hypothyroidism, unspecified; D64.9 Anemia, unspecified
CPT/HCPCS: 36415; 82306; 83540; 84439; 84443; 85025

== ENCOUNTER 2024-03-09 09:39 | Outpatient (AMB) | payer OTHER, MEDICAID, SELFPAY ==
--- NOTE | 2024-03-09 09:43 | AM.OFFWIN_ITS ---
Intake Vital Signs 03/09/24 10:08 Height 5 ft 4 in Weight 148 lb BMI 25.4 BP 110/78 Blood Pressure Location Rt brachial Position Sitting Pulse 71 Pulse Source Pulse Oximeter Temp 98.4 F Temp Source Oral Pulse Oximetry (%) 97 Oxygen Delivery Method Room Air Intake Visit Reasons: Muscle pain and Coughing, headache Intake Note: Patient here for cold that has been present for about 1 month, she states she has been coughing a lot and is now having rib pain. Patient Tobacco Use Status: Never used Tobacco Allergies No Known Allergies Allergy (Verified 03/09/24 10:08) Do you need a note to return to daycare/school/sports/work: No HPI Muscle pain and Coughing, headache HPI Details This note is constructed using voice recognition software. While every effort has been made to ensure accuracy, service technician errors may have been included. The patient is a 54 year old female who presents to the clinic today with cough for 1 month. She notes that she has tried benzonatate and this has not done anything to resolve her cough. She has also tried tsfj-mpf-sownqac DayQuil, NyQuil without resolution. She denies fever, chills, dyspnea. She notes that her entire family did have an URI that went through the house. She is requesting cough syrup with codeine as she has had this in the past from her primary, had a small amount left over and was able to get a good night's rest on that. He also notes that she has a breast cancer survivor, and since treatment with radiation and chemotherapy she has had a mild cough, that does not seem to resolve, which is different from the cough she is experiencing at this time. [facility] Medical History (Updated 07/02/23 @ 11:57 by Renu Arzate MD) Osteopenia of multiple sites Vitamin D deficiency Family history of osteoporosis in mother History of ductal carcinoma in situ (DCIS) of breast History of Papanicolaou smear of cervix Rash of toe Bilateral posterior neck pain Tubular adenoma of colon History of COVID-19 Knee pain, right Irritable bowel syndrome with constipation Anemia History of migraine Varicose vein of leg Infiltrating ductal carcinoma of breast Acquired hypothyroidism Surgical History History of breast reconstruction History of mastectomy History of colonoscopy History of section Family History Father HTN (hypertension) Mother HTN (hypertension) Colon cancer, Onset Age: 58 Maternal Uncle Colon cancer, Onset Age: 58 Brother No problems noted. Brother No problems noted. Brother No problems noted. Sister No problems noted. Sister No problems noted. Son No problems noted. Son No problems noted. Social History Housing: House Alcohol intake: never Patient Tobacco Use Status: Never used Tobacco e-Cigarette/Vaping Use: Never Used service: No Current occupational status: unemployed Cognitive needs: No Hearing needs: No Vision needs: Yes Review of Systems Const All systems reviewed & are unremarkable except as noted in HPI and below Physical Exam Vital Signs: Last Vital Signs Temp 98.4 F 03/09/24 10:08 Pulse 71 03/09/24 10:08 BP 110/78 03/09/24 10:08 Pulse Ox 97 03/09/24 10:08 Oxygen Delivery Method Room Air 03/09/24 10:08 BMI result Body Mass Index 25.4 Const General: cooperative, healthy appearing, comfortable and no acute distress Orientation/consciousness: patient oriented x3 Limitations: no limitations HEENT Head: Yes normal to inspection Ears: hearing grossly normal bilaterally, external ears normal and TM's normal bilaterally General nose exam: Normal external nose present, Normal nares present and No nasal discharge present Face and sinus: Yes normal facial exam and Yes sinuses nontender Mouth: Normal oral and palatal mucosa present and moist mucous membranes Throat: Yes posterior oropharynx normal, Yes tonsils normal and Yes uvula midline Eyes General: appearance normal, both eyes and all related structures Neck Neck: Yes normal visual inspection Resp Effort & Inspection: normal respiratory effort, able to speak in complete sentences, Actively coughing, no respiratory distress, not tachypneic, no tripod positioning and no use of accessory muscles Auscultation: clear to auscultation bilaterally Cardio Jugular venous distension: no JVD Rate: regular rate Rhythm: regular rhythm Heart sounds: S1 normal heart sound present, S2 normal heart sound present, no click, no gallops, no murmurs and no rubs Skin General skin exam: no rashes or lesions noted, elasticity normal and turgor normal Neuro General: patient oriented x3 Extrem General: Yes normal to inspection and Yes no clubbing, cyanosis or edema Assessment & Plan Assessment & Plan (1) Cough: Code(s): R05.9 - Cough, unspecified Qualifiers: Cough type: subacute Qualified Code(s): R05.2 - Subacute cough Plan: Likely due to recent viral URI. Given patient's response to cough syrup with codeine, we did prescribe a small amount to help get her a few nights of good rest. Advised patient to follow up with primary care provider with worsening or failure to resolve. Her physical examination was reassuring today, so we did not elect to do a chest x-ray, however she was to develop symptoms such as dyspnea at rest, we would certainly require imaging at that time. Plan See above for full details and plan. Medications: Changed From codeine-guaifenesin 10-100 mg/5 mL 5 mL PO Q12H PRN 118 mL 0RF cough To codeine-guaifenesin 10-100 mg/5 mL 5 mL PO BEDTIME 5 days PRN 25 mL 0RF cough Coding Level of Care Code Est Pt Level 3 (30746) Diagnoses Subacute cough R05.2 Cough type: subacute
[2024-03-09 10:08] VITALS: BP 110/78; PULSE 71; TEMP 36.9; O2SAT 97; BMI 25.4
== END 2024-03-09 10:44 | disposition home or self-care (01) ==
PROVIDERS: PCP Internal Medicine; Visit Provider Registered Nurse
DX: R05.2 Subacute cough (principal)
CPT/HCPCS: 99213

== ENCOUNTER 2024-03-09 09:41 | Outpatient (REF) | payer OTHER, MEDICAID, SELFPAY ==
[2024-03-09 12:19] LABS: Free T4 (Free Thyroxine) 0.93 ng/dL (0.71-1.85); Thyroid Stimulating Hormone 5.54 uIU/mL (0.32-4.0)
[2024-03-10 18:13] LABS: Thyroid Peroxidase Antibodies 1 IU/mL (<9)
== END 2024-03-09 09:42 | disposition home or self-care (01) ==
LOC: HO.HMGCLDS 09:41
PROVIDERS: PCP Internal Medicine; Visit Provider Internal Medicine
DX: E03.9 Hypothyroidism, unspecified (principal)
CPT/HCPCS: 36415; 84439; 84443; 86376